=== PATIENT | male | born 1965 | race Caucasian/White ===

== ENCOUNTER 2017-02-15 22:41 | Emergency (ER) | payer MEDICAID ==
[~2017-02-15] VITALS: Ht 165.1 cm; Wt 66.0 kg
[2017-02-16] MEDS ORDERED: SODIUM CHLORIDE 0.9% 1,000 ML IV ONE ×2 (00:21→01:15)
[2017-02-16] MEDS ORDERED: LORAZEPAM 2MG/ML CPJ IV ONE (00:30)
[2017-02-16 00:36] LABS: CHLORIDE 98 mEq/L (98-107)
[2017-02-16 00:37] LABS: BASOPHILS % 0.9 % (0.0-2.0); EOSINOPHILS % 6.7 % (0.0-5.0); HEMATOCRIT. 45.2 % (42.0-52.0); HEMOGLOBIN. 15.4 g/dL (14.0-18.0); LYMPHOCYTES % 18.9 % (20.0-50.0); MEAN CORPUSCULAR HEMOGLOBIN 29.6 pg (28.0-32.0); MEAN PLATELET VOLUME 7.4 fl (7.4-10.4); MONOCYTES % 4.3 % (2.0-8.0); NEUTROPHILS % 69.2 % (40.0-76.0); PLATELET 343 x1000/uL (130-400); RED CELL DISTRIBUTION WIDTH 14.4 % (11.6-14.6)
[2017-02-16 00:38] LABS: PROTHROMBIN TIME 10.5 sec (9.4-11.6)
[2017-02-16 00:42] LABS: *AMPHETAMINES SCREEN URINE PRESUMTIVE POSITIVE (NEGATIVE); *BARBITURATES SCREEN URINE NEGATIVE (NEGATIVE); *BENZODIAZEPINES SCREEN URINE NEGATIVE (NEGATIVE); *COCAINE SCREEN URINE NEGATIVE (NEGATIVE); CANNABINOID URINE SCREEN NEGATIVE (NEGATIVE); METHADONE URINE SCREEN NEGATIVE (NEGATIVE); OPIATES URINE SCREEN NEGATIVE (NEGATIVE); PHENCYCLIDINE URINE SCREEN NEGATIVE (NEGATIVE)
[2017-02-16 00:45] LABS: CARBON DIOXIDE 25 mEq/L (21-32); ETHANOL BLOOD 72 mg/dL
[2017-02-16 01:09] LABS: TROPONIN I < 0.02 ng/mL (0.00-0.04)
[2017-02-16 04:00] VITALS: BP 127/58
== END 2017-02-16 04:07 | disposition home or self-care (01) ==
LOC: ER 23:54 → CANBEDREQ 02-16 03:03 → ER 02-16 04:07
DX: F15.10 Other stimulant abuse, uncomplicated (principal); F11.10 Opioid abuse, uncomplicated; F10.10 Alcohol abuse, uncomplicated; Y90.9 Presence of alcohol in blood, level not specified; R03.0 Elevated blood-pressure reading, without diagnosis of hypertension; E87.2 Acidosis; J02.9 Acute pharyngitis, unspecified; R50.9 Fever, unspecified; G93.89 Other specified disorders of brain; F17.210 Nicotine dependence, cigarettes, uncomplicated; Z90.89 Acquired absence of other organs
CPT/HCPCS: 36415; 70450; 71010; 80053; 80305; 83605; 83690; 83880; 84484; 85025; 85610; 87040; 93005; 96361; 96374; 99285; G0482; J2060; J7030; Z7610